=== PATIENT | male | born 1955 | race African-American/Black ===

== ENCOUNTER 2025-05-28 12:29 | Emergency (ER) | payer MEDICARE, MEDICAID ==
[~2025-05-28] VITALS: Ht 177.8 cm; Wt 115.0 kg
[~2025-05-28 12:29] MED LIST: AMLO10TA80 MT; LOSA100T33 MT; METF-416 MT
[2025-05-28 12:36] VITALS: O2SAT 99
[2025-05-28 12:45] VITALS: BP 144/74; PULSE 71; RESP 16; TEMP 36.8; O2SAT 99
[2025-05-28] MEDS: KETOROLAC 30MG/ML VIAL IM ONE (14:02)
== END 2025-05-28 14:03 | disposition home or self-care (01) ==
LOC: ER 12:29
DX: M79.604 Pain in right leg (principal); E11.9 Type 2 diabetes mellitus without complications; I10 Essential (primary) hypertension; E78.00 Pure hypercholesterolemia, unspecified; Z79.899 Other long term (current) drug therapy
CPT/HCPCS: 99283; 96372; J1885